=== PATIENT | female | born 1970 | race Caucasian/White ===

== ENCOUNTER 2017-08-07 22:14 | Emergency (ER) | payer BC, OTHER ==
[2017-08-07 22:20] VITALS: RESP 18; TEMP 99.3
[2017-08-07] MEDS ORDERED: KETOROLAC 30 MG/ML 1 ML VIAL IVP STA (22:46)
[2017-08-07] MEDS ORDERED: METOCLOPRAMIDE 5 MG/ML 2 ML VIAL IVP STA (22:46)
[2017-08-07] MEDS ORDERED: diphenhydrAMINE 50 MG/ML 1 ML VIAL IVP STA (22:46)
[2017-08-07] MEDS ORDERED: ORPHENADRINE 30 MG/ML 2 ML VIAL IVP STA (22:46)
[2017-08-07] MEDS ORDERED: SODIUM CHLORIDE 0.9% 500 ML IV ONE (22:47)
[2017-08-07 23:15] LABS: Basophils # (A) 0.1 k/uL (0-0.2); Basophils % (A) 1 %; Eosinophils # (A) 0.1 k/uL (0-0.7); Eosinophils % (A) 2 %; HCT 46.8 % (34.0-46.0); HGB 14.9 gm/dL (11.4-16.0); Lymphocytes % (A) 16 %; MCH 28.3 pg (25.0-35.0); MCHC 31.8 g/dL (31.0-37.0); Mean Platelet Volume 8.3; Monocytes # (A) 0.5 k/uL (0-1.0); Monocytes % (A) 7 %; Neutrophils # (A) 4.7 k/uL (1.3-7.7); Neutrophils % (A) 71 %; Platelet Count 181 k/uL (150-450); RBC 5.26 m/uL (3.80-5.40); RDW 14.1 % (11.5-15.5); WBC 6.6 k/uL (3.8-10.6)
[2017-08-07 23:24] LABS: ALT 37 U/L (9-52); AST 14 U/L (14-36); Albumin 4.2 g/dL (3.5-5.0); Alkaline Phosphatase 61 U/L (38-126); Anion Gap 11 mmol/L; Blood Urea Nitrogen 16 mg/dL (7-17); Calcium 9.9 mg/dL (8.4-10.2); Carbon Dioxide 25 mmol/L (22-30); Chloride 107 mmol/L (98-107); Glucose 135 mg/dL (74-99); Magnesium 1.9 mg/dL (1.6-2.3); Potassium 4.3 mmol/L (3.5-5.1); Sodium 143 mmol/L (137-145); Total Bilirubin 0.5 mg/dL (0.2-1.3); Total Protein 7.9 g/dL (6.3-8.2)
--- NOTE | 2017-08-07 23:57 | ED ---
Headache HPI - General Chief Complaint: Headache Stated Complaint: headache/muscle spasms Time Seen by Provider: 08/07/17 22:34 Source: patient, RN notes reviewed Mode of arrival: ambulatory Limitations: no limitations - History of Present Illness Initial Comments: 47-year-old female presents emergency Department with chief complaint of migraine headache, muscle spasms. Patient states that symptoms develop 2 days ago. Patient states she's tried ibuprofen or 6 hours ago with no relief. Patient states that she's had headaches like this in the past but never lasted this long. Patient denies neck pain or neck stiffness. She does complain of body aches, muscle spasm and hot and cold flashes. She denies any cough, runny nose. Patient has tried some NyQuil also stated that would help but has not. Patient denies any focal weakness family notes denies any confusion or any other abnormal behavior. Patient denies any nausea vomiting diarrhea constipation. - Related Data Home Medications Medication Instructions Recorded Confirmed Levothyroxine Sodium [Synthroid] 137 mcg PO DAILY 08/07/17 08/07/17 Previous Rx's Medication Instructions Recorded Butalb/APAP/Caff 50-325-40Mg 1 tab PO Q4H PRN #10 tablet 08/08/17 [Fioricet 50-325-40] Allergies Allergy/AdvReac Type Severity Reaction Status Date / Time No Known Allergies Allergy Verified 08/07/17 23:01 Review of Systems ROS Statement: Those systems with pertinent positive or pertinent negative responses have been documented in the HPI. ROS Other: All systems not noted in ROS Statement are negative. Past Medical History Past Medical History: Thyroid Disorder Additional Past Medical History / Comment(s): migraines History of Any Multi-Drug Resistant Organisms: None Reported Past Surgical History: Cholecystectomy Additional Past Surgical History / Comment(s): thyroidectomy Past Psychological History: No Psychological Hx Reported Smoking Status: Never smoker Past Alcohol Use History: Rare Past Drug Use History: None Reported General Exam Limitations: no limitations General appearance: alert, in no apparent distress Head exam: Present: atraumatic, normocephalic, normal inspection Eye exam: Present: normal appearance, PERRL, EOMI. Absent: scleral icterus, conjunctival injection, periorbital swelling ENT exam: Present: normal exam, normal oropharynx, mucous membranes moist, TM's normal bilaterally, normal external ear exam Neck exam: Present: normal inspection, full ROM. Absent: tenderness, meningismus, lymphadenopathy Respiratory exam: Present: normal lung sounds bilaterally. Absent: respiratory distress, wheezes, rales, rhonchi, stridor Cardiovascular Exam: Present: regular rate, normal rhythm, normal heart sounds. Absent: systolic murmur, diastolic murmur, rubs, gallop, clicks GI/Abdominal exam: Present: soft, normal bowel sounds. Absent: distended, tenderness, guarding, rebound, rigid Neurological exam: Present: alert, oriented X3, CN II-XII intact, reflexes normal. Absent: motor sensory deficit Skin exam: Present: warm, dry, intact, normal color. Absent: rash Course Vital Signs 08/07/17 08/08/17 22:18 00:39 Temperature 99.3 F Pulse Rate 89 93 Respiratory 18 18 Rate Blood Pressure 135/78 147/73 O2 Sat by Pulse 98 98 Oximetry Medical Decision Making - Medical Decision Making 47-year-old female presented started for headache, muscle spasms. Patient's laboratory unremarkable. CT does not show any evidence of acute intracranial bleed or any other acute abnormalities. Patient's neuro exam is benign. Patient will be discharged with firocet for migraine headaches return parameters were discussed. - Lab Data Result diagrams: 08/07/17 23:03 08/07/17 23:03 Lab Results 08/07/17 08/07/17 08/07/17 Range/Units 22:30 23:03 23:03 WBC 6.6 (3.8-10.6) k/uL RBC 5.26 (3.80-5.40) m/uL Hgb 14.9 (11.4-16.0) gm/dL Hct 46.8 H (34.0-46.0) % MCV 89.0 (80.0-100.0) fL MCH 28.3 (25.0-35.0) pg MCHC 31.8 (31.0-37.0) g/dL RDW 14.1 (11.5-15.5) % Plt Count 181 (150-450) k/uL Neutrophils % 71 % Lymphocytes % 16 % Monocytes % 7 % Eosinophils % 2 % Basophils % 1 % Neutrophils # 4.7 (1.3-7.7) k/uL Lymphocytes # 1.0 (1.0-4.8) k/uL Monocytes # 0.5 (0-1.0) k/uL Eosinophils # 0.1 (0-0.7) k/uL Basophils # 0.1 (0-0.2) k/uL Sodium 143 (137-145) mmol/L Potassium 4.3 (3.5-5.1) mmol/L Chloride 107 (98-107) mmol/L Carbon Dioxide 25 (22-30) mmol/L Anion Gap 11 mmol/L BUN 16 (7-17) mg/dL Creatinine 0.80 (0.52-1.04) mg/dL Est GFR (MDRD) Af Amer >60 (>60 ml/min/1.73 sqM) Est GFR (MDRD) Non-Af >60 (>60 ml/min/1.73 sqM) Glucose 135 H (74-99) mg/dL Calcium 9.9 (8.4-10.2) mg/dL Magnesium 1.9 (1.6-2.3) mg/dL Total Bilirubin 0.5 (0.2-1.3) mg/dL AST 14 (14-36) U/L ALT 37 (9-52) U/L Alkaline Phosphatase 61 (38-126) U/L Total Protein 7.9 (6.3-8.2) g/dL Albumin 4.2 (3.5-5.0) g/dL Influenza Type A RNA Not Detected (Not Detectd) Influenza Type B (PCR) Not Detected (Not Detectd) Disposition Clinical Impression: Migraine Disposition: HOME SELF-CARE Condition: Stable Instructions: Acute Headache (ED) Additional Instructions: Please return to the Emergency Department if symptoms worsen or any other concerns. Prescriptions: Butalb/APAP/Caff 50-325-40Mg [Fioricet 50-325-40] 1 tab PO Q4H PRN #10 tablet PRN Reason: Headache Referrals: Ric Jordan DO [Primary Care Provider] - 1-2 days Time of Disposition: 00:44
[2017-08-08] MEDS ORDERED: MORPHINE SULFATE 5 MG/ML SYRINGE IVP ONE (00:09)
[2017-08-08] MEDS ORDERED: ONDANSETRON 4 MG/2 ML VIAL IVP STA (00:09)
--- NOTE | 2017-08-08 00:33 | CT ---
EXAMINATION TYPE: CT brain wo con DATE OF EXAM: 08/08/2017 COMPARISON: NONE HISTORY: Migraine headache CT DLP: 1047.10 mGycm. Automated Exposure Control for Dose Reduction was Utilized. TECHNIQUE: CT scan of the head is performed without contrast. FINDINGS: Ventricles and sulci appear normal. There is no mass effect nor midline shift. There is n o sign of intracranial hemorrhage. The calvarium is intact. CONCLUSION: Normal unenhanced head CT scan.
[2017-08-08 00:41] VITALS: BP 147/73; PULSE 93
== END 2017-08-08 01:08 | disposition home or self-care (01) ==
LOC: EC 22:14
DX: G43.909 Migraine, unspecified, not intractable, without status migrainosus (principal); E07.9 Disorder of thyroid, unspecified; M62.838 Other muscle spasm; Z79.899 Other long term (current) drug therapy
CPT/HCPCS: 36415; 80053; 83735; 85025; 87502; 70450; 99284; 96374; 96375 ×5; 96361; J1200; J2360; J2765; J2405; J1885; J2274

== ENCOUNTER 2019-02-16 14:37 | Emergency (ER) | payer BC, OTHER ==
[2019-02-16 14:52] VITALS: RESP 18
--- NOTE | 2019-02-16 15:40 | XR ---
Right hand HISTORY: Laceration 3 views of the right hand Bone mineralization, joint spaces and alignment are maintained. No radiopaque foreign body. Soft tiss ue defect is present compatible with patient's history of laceration. IMPRESSION: No fracture or dislocation.
[2019-02-16] MEDS ORDERED: LIDOCAINE 1% INJ 10MG/ML (20 ML MDV) SQ ONE (16:07)
[2019-02-16] MEDS ORDERED: DIPH,PERTUS(ACELL)TETVAC-LF 0.5 ML VIAL IM ONE (16:10)
--- NOTE | 2019-02-16 16:43 | ED ---
Wound/Laceration HPI - General Chief Complaint: Wound/Laceration Stated Complaint: Hand lacertion Time Seen by Provider: 02/16/19 15:11 Source: patient Mode of arrival: ambulatory Limitations: no limitations - History of Present Illness Initial Comments: 48-year-old presented for hand laceration. Patient states she cut the webspace between her thumb and index finger with a can. Patient states it was a clean she had it was not meka. Patient is unsure last tetanus. Patient denies numbness tingling or loss sensation or decreased mobility of the digits of the right hand. Patient denies any other areas of injury. Remaining review of systems negative upon arrival patient appears well no signs of acute distress. - Related Data Home Medications Medication Instructions Recorded Confirmed Levothyroxine Sodium [Synthroid] 125 mcg PO DAILY 02/16/19 02/16/19 Allergies Allergy/AdvReac Type Severity Reaction Status Date / Time No Known Allergies Allergy Verified 02/16/19 15:22 Review of Systems ROS Statement: Those systems with pertinent positive or pertinent negative responses have been documented in the HPI. ROS Other: All systems not noted in ROS Statement are negative. Past Medical History Past Medical History: Thyroid Disorder Additional Past Medical History / Comment(s): migraines History of Any Multi-Drug Resistant Organisms: None Reported Past Surgical History: Cholecystectomy Additional Past Surgical History / Comment(s): thyroidectomy Past Psychological History: No Psychological Hx Reported Smoking Status: Never smoker Past Alcohol Use History: Rare Past Drug Use History: None Reported General Exam - General Exam Comments Initial Comments: General: The patient is awake and alert, in no distress, and does not appear acutely ill. Eye: Pupils are equal, round and reactive to light, extra-ocular movements are intact. No nystagmus. There is normal conjunctiva bilaterally. No signs of icterus. Cardiovascular: There is a regular rate and rhythm. No murmur, rub or gallop is appreciated. Respiratory: Lungs are clear to auscultation, respirations are non-labored, breath sounds are equal. No wheezes, stridor, rales, or rhonchi. Musculoskeletal: Normal ROM, no tenderness. Strength 5/5. Sensation intact. Pulses equal bilaterally 2+. Neurological: A&O x 3. CN II-XII intact, There are no obvious motor or sensory deficits. Coordination appears grossly intact. Speech is normal. Skin: Skin is warm and dry and no rashes. 2cm laceration superficial of the web space of digits 1/2 of the right hand. Full range of motion with no limitations MTP DIP and PIP joints of the adjacent digits. No hand pain. No active bleeding. No evidence of foreign body. Psychiatric: Cooperative, appropriate mood & affect, normal judgment. Limitations: no limitations Course Vital Signs 02/16/19 02/16/19 14:48 16:58 Temperature 98.0 F 98.1 F Pulse Rate 70 66 Respiratory 18 18 Rate Blood Pressure 130/82 129/80 O2 Sat by Pulse 98 100 Oximetry Procedures - Laceration Laceration #1 Consent Obtained: verbal consent Indication: laceration Site: hand Size (cm): 2 Description: linear Depth: simple, single layer Anesthetic Used: lidocaine 1% Anesthesia Technique: local infiltration Amount (mls): 2 Pre-repair: wound explored, irrigated extensively, deep structures intact Size of Sutures: 5-0 Number of Sutures: 3 Technique: simple, interrupted Patient Tolerated Procedure: well, no complications Medical Decision Making - Medical Decision Making 48-year-old female presenting for hand laceration. laceration repair after cleansing. Irrigated extensively foreign body. X-ray negative for acute osseous process. Patient neurovascularly intact. No evidence of tendon injurysuspicion. Tetanus is updated. Patient is discharged. Will Disposition Clinical Impression: Laceration of right hand Disposition: HOME SELF-CARE Condition: Good Instructions (If sedation given, give patient instructions): Care For Your Stitches (ED), Laceration (ED) Additional Instructions: Please use medication as discussed. Please follow-up with for suture removal in the next 7-10 days. Please return to emergency room if the symptoms increase or worsen or for any other concerns. Is patient prescribed a controlled substance at d/c from ED?: No Referrals: Ric Jordan DO [Primary Care Provider] - 1-2 days Time of Disposition: 16:43
[2019-02-16 16:59] VITALS: BP 129/80; PULSE 66; TEMP 98.1
== END 2019-02-16 16:58 | disposition home or self-care (01) ==
LOC: EC 14:37
DX: S61.411A Laceration without foreign body of right hand, initial encounter (principal); E07.9 Disorder of thyroid, unspecified; Z23 Encounter for immunization; Z79.890 Hormone replacement therapy; W26.8XXA Contact with other sharp object(s), not elsewhere classified, initial encounter
CPT/HCPCS: 73130; 90715; 99283; 12001; 90471; J2001

== ENCOUNTER → 2020-02-09 | Outpatient (CLI) | payer BC ==
--- NOTE | 2020-02-11 08:49 | MM ---
Reason for exam: screening (asymptomatic). Last mammogram was performed 13 years and 10 months ago. History: Patient has history of other cancer at age 32 and had first child at age 33. Family history of breast cancer in mother at age 87. Taking unspecified hormones for 2 years beginning at age 34. Physical Findings: A clinical breast exam by your physician is recommended on an annual basis and results should be correlated with mammographic findings. MG Screening Mammo w CAD Bilateral CC and MLO view(s) were taken. Prior study comparison: April 22, 2006, CAD bilateral diagnostic mammogram. September 11, 2004, bilateral screening mammogram. There are scattered fibroglandular densities. Previous mammotome biopsy in the right breast. Benign oil cyst calcification on the right. Round and punctate benign calcifications posteriorly and medially. ASSESSMENT: Benign, BI-RAD 2 RECOMMENDATION: Routine screening mammogram of both breasts in 1 year.
== END | disposition home or self-care (01) ==
LOC: RADMAMWWP 16:03
PROVIDERS: ATTEND Family Medicine
DX: Z12.31 Encounter for screening mammogram for malignant neoplasm of breast (principal)
CPT/HCPCS: 77067

== ENCOUNTER 2020-02-21 09:30 | Day surgery (SDC) | payer BC ==
[2020-02-17 15:46] VITALS: BMI 32.2
[~2020-02-21 09:30] MED LIST: LACTATED RINGERS 1,000 ML IV SCH; LIDOCAINE 1% (10MG/ML) FOR IV START INTRADERMA PRN
[2020-02-21 10:02] VITALS: TEMP 97.5
[2020-02-21] MEDS ORDERED: MIDAZOLAM 2 MG/2 ML VIAL ONE (10:48)
[2020-02-21] MEDS ORDERED: fentaNYL (PF) 50 MCG/ML 2 ML AMP ONE (10:48)
[2020-02-21] MEDS ORDERED: PROPOFOL 10 MG/ML 20 ML VIAL IV ONE (10:48)
--- NOTE | 2020-02-21 11:26 | P.PCN ---
Date of Procedure: 02/21/20 Description of Procedure: BRIEF HISTORY: Patient is a 49-year-old female presenting for outpatient colonoscopy for screening for malignant neoplasm in the colon. Previous colonoscopy for evaluation of abdominal pain prior to cholecystectomy. No change in bowel habits, blood per rectum or pain reported. No family history of colon cancer. PROCEDURE PERFORMED: Colonoscopywith polypectomy. PREOPERATIVE DIAGNOSIS: Screening for malignant neoplasm colon, prior colonoscopy for abdominal pain. ESTIMATED BLOOD LOSS: Minimal. IV sedation per Anesthesia. PROCEDURE: After informed consent was obtained, the patient, was brought into the endoscopy unit. IV sedation was administered by Anesthesia under continuous monitoring. Digital rectal examination was normal. Initially the Olympus CF-190 flexible video colonoscope was then inserted in the rectum, gradually advanced into the cecum without any difficulty. Careful examination was performed as the scope was gradually being withdrawn. Ileocecal valve and the appendiceal orifice were visualized and appeared normal. Prep was excellent. Mucosa of the cecum, ascending colon, transverse colon, descending colon, sigmoid colon, and rectum appeared normal, except for a diminutive 2 mm polyp in the rectum removed with cold forcep polypectomy. There were also a few small scattered diverticula noted throughout the colon. Retroflexion was performed in the rectum and no lesions were seen. The patient tolerated the procedure well. IMPRESSION: Normal-appearing colon from rectum to cecum. Diminutive rectal polyp removed with cold forceps. Mild pandiverticulosis. RECOMMENDATIONS: Findings of this examination were discussed with the patient. Okay to resume diet. Okay to resume medications. Await pathology from polypectomy. Would recommend repeat colonoscopy in 7 years for colon polyp, pending pathology polypectomy..
[2020-02-21 11:33] VITALS: BP 114/78
[2020-02-21 12:57] VITALS: PULSE 68; RESP 18
== END 2020-02-21 12:23 | disposition home or self-care (01) ==
LOC: ORWHC2ENDO 09:30
PROVIDERS: ATTEND Internal Medicine
DX: Z12.11 Encounter for screening for malignant neoplasm of colon (principal); K62.1 Rectal polyp; K57.30 Diverticulosis of large intestine without perforation or abscess without bleeding; E07.9 Disorder of thyroid, unspecified; Z79.890 Hormone replacement therapy; Z90.49 Acquired absence of other specified parts of digestive tract; Z98.890 Other specified postprocedural states
CPT/HCPCS: 81025; 88305; 45380; J2250; J3010; J2704

== ENCOUNTER → 2020-06-02 | Outpatient (CLI) | payer BC ==
[2020-06-02 19:14] LABS: T4, Free (Free Thyroxine) 1.48 ng/dL (0.78-2.19)
== END | disposition home or self-care (01) ==
LOC: LAB 17:42
PROVIDERS: ATTEND Internal Medicine
DX: C73 Malignant neoplasm of thyroid gland (principal); E89.0 Postprocedural hypothyroidism
CPT/HCPCS: 84432; 84439; 84443; 86800

== ENCOUNTER → 2021-12-27 | Outpatient (CLI) | payer BC ==
--- NOTE | 2021-12-28 14:53 | MM ---
Reason for Exam: Screening (asymptomatic). Last mammogram was performed 1 year(s) and 10 month(s) ago. Patient History: Menarche at age 12. First Full-Term at age 33. Late child-bearing (after 30). Patient has history of breast feeding. Mother had breast cancer, age 87. Last menstrual period: 06/20/2021 Risk Values: Pushpa 5 year model risk: 2.1%. NCI Lifetime model risk: 16.7%. Film Views: Bilateral CC views were taken. Bilateral MLO views were taken. Prior Study Comparison: 09/11/2004 Bilateral Screening Mammogram, [facility]. 04/22/2006 Bilateral Diagnostic Mammogram, [facility]. 02/09/2020 Bilateral Screening Mammogram, [facility]. Tissue Density: There are scattered fibroglandular densities. Findings: Analyzed By CAD. There is no suspicious group of microcalcifications or new suspicious mass in either breast. Overall Assessment: Benign, BI-RAD 2 Management: Screening Mammogram of both breasts in 1 year. A clinical breast exam by your physician is recommended on an annual basis and results should be correlated with mammographic findings. Electronically signed and approved by: Vinicio Ashford M.D. Radiologis
== END | disposition home or self-care (01) ==
LOC: RADMAMWWP 09:24
PROVIDERS: ATTEND Family Medicine
DX: Z12.31 Encounter for screening mammogram for malignant neoplasm of breast (principal); Z80.3 Family history of malignant neoplasm of breast
CPT/HCPCS: 77067

== ENCOUNTER → 2022-12-31 | Outpatient (CLI) | payer BC ==
--- NOTE | 2022-12-31 08:40 | MM ---
Reason for Exam: Screening (asymptomatic). Last screening mammogram was performed 12 month(s) ago. Patient History: Menarche at age 12. First Full-Term at age 33. Late child-bearing (after 30). Postmenopausal. Patient has history of breast feeding. Mother had breast cancer, age 87. Risk Values: Pushpa 5 year model risk: 2.2%. NCI Lifetime model risk: 16.5%. Prior Study Comparison: 04/22/2006 Bilateral Diagnostic Mammogram, [facility]. 02/09/2020 Bilateral Screening Mammogram, [facility]. 12/27/2021 Bilateral MG screening mammo w CAD, [facility]. Tissue Density: There are scattered fibroglandular densities. Findings: Analyzed By CAD. There is no suspicious group of microcalcifications or new suspicious mass in either breast. Overall Assessment: Negative, BI-RAD 1 Management: Screening Mammogram of both breasts in 1 year. . Patient should continue monthly self-breast exams. A clinical breast exam by your physician is recommended on an annual basis. This exam should not preclude additional follow-up of suspicious palpable abnormalities. Note on Pushpa scores and lifetime risk: 1. A Pushpa score greater than 3% is considered moderate risk. If this is the case, consider specialist referral to assess eligibility for a risk reducing agent. 2. If overall lifetime risk for the development of breast cancer is 20% or higher, the patient may qualify for future screening with alternating mammogram and breast MRI. Electronically signed and approved by: Tc Castellanos M.D. Radiologis
== END | disposition home or self-care (01) ==
LOC: RADMAMWWP 06:48
PROVIDERS: ATTEND Family Medicine
DX: Z12.31 Encounter for screening mammogram for malignant neoplasm of breast (principal); Z78.0 Asymptomatic menopausal state; Z80.3 Family history of malignant neoplasm of breast
CPT/HCPCS: 77063; 77067

== ENCOUNTER → 2024-04-30 | Outpatient (CLI) | payer OTHER ==
--- NOTE | 2024-05-02 09:58 | MM ---
Reason for Exam: Screening (asymptomatic). Last mammogram was performed 1 year(s) and 4 month(s) ago. Patient History: Menarche at age 12. First Full-Term at age 33. Late child-bearing (after 30). Postmenopausal. Patient has history of breast feeding. Mother had breast cancer, age 77. Risk Values: Pushpa 5 year model risk: 2.4%. NCI Lifetime model risk: 15.9%. Prior Study Comparison: 02/09/2020 Bilateral Screening Mammogram, [facility]. 12/27/2021 Bilateral MG screening mammo w CAD, [facility]. 12/31/2022 Bilateral MG 3D screening mammo w/cad, [facility]. Tissue Density: There are scattered areas of fibroglandular density. Findings: Analyzed By CAD. The pattern is symmetrical. Pattern appears stable. Benign scattered calcifications are present bilaterally. No suspicious groups of microcalcifications, spiculated or lobular masses, architectural distortion or other secondary signs of malignancy are mammographically apparent. Overall Assessment: Benign, BI-RAD 2 Management: Screening Mammogram of both breasts in 1 year. A negative mammogram report should not preclude additional follow up of suspicious palpable abnormalities. Patient should continue monthly self breast exam. A clinical breast exam by your physician is recommended on an annual basis and results should be correlated with mammographic findings. Note on Pushpa scores and lifetime risk: 1. A Pushpa score greater than 3% is considered moderate risk. If this is the case, consider specialist referral to assess eligibility for a risk reducing agent. 2. If overall lifetime risk for the development of breast cancer is 20% or higher, the patient may qualify for future screening with alternating mammogram and breast MRI. [facility], , 05/02/2024 9:55 AM. Electronically signed and approved by: Ric Fontanez D.O. Radiologis
== END | disposition home or self-care (01) ==
LOC: RADMAMWWP 09:40
PROVIDERS: ATTEND Family Medicine
DX: Z12.31 Encounter for screening mammogram for malignant neoplasm of breast
CPT/HCPCS: 77063; 77067

== ENCOUNTER → 2024-06-04 | Outpatient (CLI) | payer OTHER ==
[2024-06-04 17:20] LABS: T4, Free (Free Thyroxine) 1.6 ng/dL (0.80-1.80)
== END | disposition home or self-care (01) ==
LOC: LABWHC1 11:20
PROVIDERS: ATTEND Internal Medicine
DX: C73 Malignant neoplasm of thyroid gland (principal); E89.0 Postprocedural hypothyroidism; E55.9 Vitamin D deficiency, unspecified
CPT/HCPCS: 36415; 82306; 84432; 84439; 84443; 86800